=== PATIENT | female | born 1995 | race African-American/Black ===

== ENCOUNTER 2018-12-19 11:18 | Emergency (ER) | payer OTHER, SELFPAY ==
[2018-12-19 11:34] VITALS: BP 136/85; PULSE 81; RESP 18; TEMP 36.7; O2SAT 99; BMI 29.2
--- NOTE | 2018-12-19 11:41 | ED_ITS ---
HPI - Eye Problem General Chief complaint: Eye Problems Stated complaint: Eye pain in left eye Time Seen by Provider: 12/19/18 11:36 Source: patient Mode of arrival: ambulatory Limitations: no limitations History of Present Illness HPI Narrative: Otherwise healthy 23-year-old female here for evaluation of pain and redness and foreign body sensation in her left eye. Patient states that she was cleaning a grill at work when she thought she saw some upper flap and hit her in her eye. Since then she has had a foreign body sensation. She does not wear glasses or contacts. No prior eye surgeries. Has washed her eye out however still has quite a bit of discomfort. Related Data Previous Rx's Medication Instructions Recorded erythromycin 0.5 inch EYE-LEFT TID 2 Days #1 12/19/18 gram Allergies Allergy/AdvReac Type Severity Reaction Status Date / Time codeine Allergy Swelling Verified 12/19/18 11:39 of Lip/Tongue/Throat Review of Systems Constitutional Denies fever(s) Eyes Denies diplopia, Denies eye discharge, Reports irritation, Denies itchy eyes, Denies loss of vision, Reports eye pain and Reports photophobia Comments: Foreign body left Integumentary/Breasts Denies rash Neurologic Denies loss of vision Allergic/Immunologic Denies urticaria and Denies itchy eyes [facility] Medical History Healthy adult (Acute) Social History Smoking Status: Current every day smoker Social History Smoking Status: Current every day smoker Exam Initial Vital Signs Initial Vital Signs: Vital Signs Temperature 98.1 F 12/19/18 11:34 Pulse Rate 81 12/19/18 11:34 Respiratory Rate 18 12/19/18 11:34 Blood Pressure 136/85 12/19/18 11:34 Pulse Oximetry 99 12/19/18 11:34 Const General: cooperative, healthy appearing, comfortable, well developed, well groomed and No acute distress Orientation: alert and awake [facility] Head: normal to inspection and normocephalic Eyes Other: Patient with a foreign body mid visual axis left eye seen on fluorescein staining with the Wood's lamp. This was removed with a cotton tip applicator. There was a small abrasion left afterwards. No foreign bodies were seen a fterwards with eversion of the upper lid or lower lid. No other uptake seen with fluorescein stain. Resp Effort & Inspection: normal respiratory effort Skin Lesions: no lesions Rashes: no rashes Neuro General: alert, awake and oriented x3 Extrem General: normal to inspection and capillary refill normal Psych Appearance: grossly normal and well kempt Course Orders Ordered: Discontinued Medications Erythromycin (Erythromycin Ophth Oint) 1 applic EYE-LEFT NOW ONE Stop: 12/19/18 11:56 Vital Signs - 8 hr 12/19/18 11:34 Temperature 98.1 F Pulse Rate 81 Respiratory Rate 18 Blood Pressure 136/85 Pulse Oximetry 99 MDM - Eye Problem MDM Narrative Medical decision making narrative: Foreign body was seen in the left and this was removed with a cotton tip applicator. There was a small abrasion noted underneath. Was given erythromycin ointment here in the ER. No other foreign bodies were noted. patient was given return precautions. She expressed understanding and agreement plan. Discharge Plan Departure Patient Disposition: Home Clinical Impression: Corneal abrasion Qualifiers: Encounter type: initial encounter Laterality: left Qualified Code(s): S05.02XA - Injury of conjunctiva and corneal abrasion without foreign body, left eye, initial encounter Acute foreign body of left cornea Qualifiers: Encounter type: initial encounter Qualified Code(s): T15.02XA - Foreign body in cornea, left eye, initial encounter Instructions: DI for Corneal Abrasion Activity Restrictions/Additional Instructions: There was a foreign body in your left eye which was removed here in the ER. Use the erythromycin ointment for the next 48 hours. Contact her primary care doctor for follow-up. Return to the emergency department for any new or worsening symptoms Prescriptions: New erythromycin 5 mg/gram (0.5 %) ointment 0.5 inch EYE-LEFT TID 2 Days Qty: 1 RF: 0
[2018-12-19] MEDS: ERYTHROMYCIN OPHTH 1 GM OINT 1 APPLIC EYE-LEFT (12:02)
[2018-12-19 12:26] VITALS: BP 140/99; PULSE 74; RESP 17; O2SAT 100
== END 2018-12-19 12:29 | disposition home or self-care (01) ==
PROVIDERS: Emergency Provider Emergency Medicine
DX: S05.02XA Injury of conjunctiva and corneal abrasion without foreign body, left eye, initial encounter (principal); T15.02XA Foreign body in cornea, left eye, initial encounter; Y99.0 Civilian activity done for income or pay
CPT/HCPCS: 99283